=== PATIENT | male | born 1970 | race Caucasian/White ===

== ENCOUNTER 2018-12-08 17:35 | Emergency (ER) | payer OTHER ==
[~2018-12-08] VITALS: Ht 182.9 cm; Wt 129.3 kg
--- OUTSIDE RECORDS SUMMARY | 2018-12-08 17:41 | XMS REPORT | Continuity of Care Document ---
Author Organization Unknown Address Unknown Allergies Active Description Code Type Severity Reaction Onset Reported/Identified Relationship to Patient Clinical Status Yes NO NAME AVAILABLE 26736 DRUG N/ A N/A Yes MDX - Codeine X386 Drug Allergy Mild HIVES 09/23/2011 Yes MDX - PCN (penicillin) X20 Drug Allergy Unknown N/A 09/23/2011 Medications There is no data. Problems There is no data. Procedures There is no data. Results Test Result Range BASIC METABOLIC PANEL - 02/12/15 06:40 POTASSIUM 3.9 mmol/L 3.5-5.1 CALCIUM 8.6 mg/dL 8.6-10.6 GLUCOSE 96 mg/dL 70-115 BUN 14 mg/dL 8-22 CREATININE 1.0 mg/dL 0.7-1.3 SODIUM 138 mmol/L 136-145 CHLORIDE 103 mmol/L 98-110 CO2 26 mmol/L 22-29 GFR ESTIMATED NOT AFR/AM >60 GFR ESTIMATED IF AFR/AM >60 ANION GAP 9 5-15 CBC WITH DIFF - 02/12/15 06:40 WBC 20.0 10*3/uL 4.3-10.8 RBC 2.96 10*6/uL 4.70-6.10 HGB 8.2 g/dL 14.0-18.0 HCT 25.4 % 42-52 MCV 86 fL 81-99 MCH 28 pg 26-34 MCHC 33 g/dL 31-37 PLATELET COUNT 454 10*3/uL 150-400 RDWCV 16.1 % 11.5-14.5 DIFF TYPE MANUAL DIFF SEG NEUTROPHILS 79 % 36-66 BAND NEUTROPHILS 5 % 5-11 LYMPHOCYTES 9 % 24-44 EOSINOPHILS 2 % 0-10 METAMYELOCYTES 2 % NEUTROPHILS, ABSOLUTE 16.8 10*3/uL 1.55-7.13 LYMPHOCYTES, ABSOLUTE 2.0 10*3/uL 1.0-4.8 EOSINOPHILS, ABSOLUTE 0.4 10*3/uL 0.0-0.65 METAMYELOCYTES, ABSOLUTE 0.4 10*3/uL RBC MORPHOLOGY SEE NOTES VARIANT LYMPHS PERCENT 1 % NRBC 2 PLATELET ESTIMATE SEE NOTES MONOCYTES 2 % 1-10 MONOCYTES, ABSOLUTE 0.4 10*3/uL 0.4-1.08 PLATELET MORPHOLOGY LARGE PLATELETS GLUCOSE BODY FLUID - 02/12/15 10:00 SOURCE GROIN FLUID GLUCOSE 90 mg/dL TOTAL PROTEIN FLUID - 02/12/15 10:00 SPECIMEN SOURCE GROIN FLUID TOTAL PROTEIN 1.5 g/dL CELL COUNT AND DIFFERENTIAL BODY FLUID - 02/12/15 10:00 BODY FLUID SOURCE GROIN BODY FLUID VOLUME 29.0 mL SUPERNATANT COLOR ORANGE CLARITY CLOUDY NUCLEATED CELL COUNT 107 mm3 RBC'S, FLUID 89212 mm3 DIFFERENTIAL BODY FLUID - 02/12/15 10:00 POLYS 89 % LYMPHS 11 % MONONUCLEAR 0 % EOSINOPHILS 0 % OTHER CELLS 0 % BODY FLUID CULTURE, AEROBIC ONLY, W GRAM STAIN - 02/12/15 10:00 SOURCE SOURCE: GROIN REQUISITION NOTE REQUISITION NOTE: GROIN GRAM STAIN GRAM STAIN EVALUATION: CYTOSPIN PREPARED GRAM STAIN CULTURE RESULTS CULTURE RESULTS: NO GROWTH AT 72 HOURS REPORT STATUS REPORT STATUS: 02/15/2015 FINAL ANAEROBIC CULTURE - 02/12/15 10:00 SOURCE SOURCE: GROIN REQUISITION NOTE REQUISITION NOTE: GROIN SEROMA S/P HEART CATH CULTURE RESULTS CULTURE RESULTS: NO GROWTH ANAEROBICALLY REPORT STATUS REPORT STATUS: 02/16/2015 FINAL CBC WITH DIFF - 02/14/15 02:44 WBC 19.6 10*3/uL 4.3-10.8 RBC 3.18 10*6/uL 4.70-6.10 HGB 8.5 g/dL 14.0-18.0 HCT 27.0 % 42-52 MCV 85 fL 81-99 MCH 27 pg 26-34 MCHC 32 g/dL 31-37 PLATELET COUNT 506 10*3/uL 150-400 RDWCV 16.1 % 11.5-14.5 DIFF TYPE AUTOMATED DIFF NEUTROPHIL % 81 % 36-66 LYMPHOCYTE % 11 % 24-44 MONOCYTE % 7 % 1-10 EOSINOPHIL % 1 % 0-6 BASOPHIL % 1 % 0-2 ABS. NEUTROPHILS 15.5 10*3/uL 1.55-7.13 ABS. LYMPHOCYTES 2.0 10*3/uL 1.0-4.8 ABS. MONOCYTES 1.3 10*3/uL 0.4-1.08 ABS. EOSINOPHILS 0.2 10*3/uL 0.0-0.65 ABS. BASOPHILS 0.1 10*3/uL 0.0-0.11 ABSOLUTE NUCLEATED RBC 0.40 10*3/uL PROCALCITONIN - 02/14/15 02:44 PROCALCITONIN 0.16 ng/mL BLOOD CULTURE - 02/14/15 02:44 SOURCE SOURCE: BLOOD REQUISITION NOTE REQUISITION NOTE: PERIPHERAL BLOOD CULTURE RESULTS CULTURE RESULTS: NO GROWTH 5 DAYS REPORT STATUS REPORT STATUS: 02/19/2015 FINAL BASIC METABOLIC PANEL POCT - 02/14/15 02:50 POC COMMENT SEE NOTES SODIUM POCT 134 mmol/L 138-146 POTASSIUM POCT 3.4 mmol/L 3.5-4.9 CHLORIDE POCT 95 mmol/L 98-109 MEASURED TOTAL CO2 POCT 29 meq/L 24-29 BUN POCT 16 mg/dL 8-26 CREATININE POCT 1.3 mg/dL 0.6-1.3 GLUCOSE POCT 106 mg/dL 70-105 IONIZED CALCIUM POCT 1.07 mmol/L 1.12-1.32 BLOOD CULTURE - 02/14/15 03:00 SOURCE SOURCE: BLOOD REQUISITION NOTE REQUISITION NOTE: PEDS ONLY CULTURE RESULTS CULTURE RESULTS: NO GROWTH 5 DAYS REPORT STATUS REPORT STATUS: 02/19/2015 FINAL Encounters ACCT No. Visit Date/Time Discharge Status Pt. Type Provider Facility Loc./Unit Complaint [id number] 07/09/2018 15:02:36 07/09/2018 23:59:59 CLS Outpatient [facility] [employer] [id number] 10/22/2017 09:30:00 10/22/2017 23:59:59 CLS Outpatient Vincent Benitez [facility]YSICAL [id number] 02/17/2015 21:29:06 ACT Document Registration [id number] 02/17/2015 21:29:00 02/18/2015 02:31:00 DIS Emergency JUDITH PARDO [facility] FED [id number] 02/14/2015 01:20:00 02/14/2015 04:00:00 DIS Emergency MANA DE ANDA [facility] FED [id number] 02/12/2015 05:57:56 02/12/2015 11:40:00 DIS Emergency RAY [facility] Heather HATCH
[2018-12-08] MEDS ORDERED: LIDOCAINE 1% INJ 20 ML 20 ML VIAL ONE (17:56)
[2018-12-08] MEDS ORDERED: OMEP10CA4 PO (18:15)
[2018-12-08] MEDS ORDERED: HCTZ (18:16)
[2018-12-08] MEDS ORDERED: ASPI-999 PO (18:16)
[2018-12-08] MEDS ORDERED: METO-387 PO (18:17)
[2018-12-08] MEDS ORDERED: GABA-488 PO (18:17)
--- NOTE | 2018-12-08 18:30 | ED Head Injury ---
General Chief Complaint: Laceration Stated Complaint: LT EYE LAC Nursing Triage Note: HIS SEMI TRUCK DOOR CAME DOWN AND HIT HIM IN THE LEFT EYEBROW AREA. THE AREA IS OPEN, BLEDDING CONTROLLED AND APPROXIMATELY 3 CM LONG WITH ABOUT A 0.5 CM CROSS LACERATION TO THE CENTER. Source: patient Exam Limitations: no limitations History of Present Illness Date Seen by Provider: December 08, 2018 Time Seen by Provider: 18:00 Initial Comments Patient presents ER by private conveyance with chief complaint that about an hour prior to arrival he had a shovel propping up tailgate of a tractor-trailer that he was cleaning out. She'll fell out and the tailgate struck him in his left forehead above the eyebrow. He has a T-shaped laceration that is pretty much stopped bleeding by the time he arrived the ER. He is a small minor abrasion on his left chest. He denies loss of consciousness nausea. He is not on blood thinners but he does take aspirin daily. Pain is mildly does not want anything for this time. History of AAA and coronary disease. Allergies and Home Medications Allergies Coded Allergies: codeine (Verified Allergy, Intermediate, LETHARGIC, 12/08/18) Uncoded Allergies: PENICILLIN (Allergy, Mild, HIVES, 12/08/18) Home Medications Metoprolol Succinate 25 Mg Tab.er.24h, 25 MG PO DAILY, (Reported) Ondansetron 4 Mg Tab.rapdis, 4 MG PO Q6H PRN for NAUSEA/VOMITING Prescribed by: BRUAN CONNOLLY on 12/08/18 4727 Patient Home Medication List Home Medication List Reviewed: Yes Review of Systems Review of Systems Constitutional: No chills, No diaphoresis Eyes: Denies Blindness, Denies Blurred Vision Ears, Nose, Mouth, Throat: denies ear pain, denies ear discharge Respiratory: No cough Cardiovascular: No chest pain, No palpitations Gastrointestinal: No abdominal pain, No constipation, No diarrhea Past Ixzqabm-Cfnxoq-Sfrlvb Hx Patient Social History Alcohol Use: Denies Use Recreational Drug Use: No Smoking Status: Current Everyday Smoker Type Used: Cigarettes 2nd Hand Smoke Exposure: Yes Recent Foreign Travel: No Contact w/Someone Who Travel: No Recent Infectious Disease Expo: No Recent Hopitalizations: No Physical Abuse: No Sexual Abuse: No Mistreated: No Fear: No Seasonal Allergies Seasonal Allergies: No Past Medical History Surgeries: Yes Appendectomy, CABG, Orthopedic Respiratory: No Cardiac: Yes Heart Attack, Hypertension Neurological: No Genitourinary: No Gastrointestinal: No Musculoskeletal: Yes Arthritis Endocrine: No HEENT: No Cancer: No Psychosocial: No Integumentary: No Blood Disorders: No Physical Exam Vital Signs Vital Signs - First Documented 12/08/18 17:40 Temp 98.5 Pulse 90 Resp 18 B/P (MAP) 141/87 (105) Pulse Ox 96 O2 Delivery Room Air Capillary Refill : Less Than 3 Seconds Height, Weight, BMI Height: 6'0" Weight: 285lbs. oz. 129.336248sw; BMI Method:Stated General Appearance: WD/WN, no apparent distress HEENT: PERRL/EOMI, normal ENT inspection, TMs normal, pharynx normal, other ( negative for hemotympanum, martin sign or raccoon eyes. There is a T-shaped laceration approximately 4 cm wide by 2 cm vertical. It's over the left eye with the horizontal piece through the eyebrow. No overt foreign body.) Neck: non-tender, full range of motion Cardiovascular: normal peripheral pulses, regular rate, rhythm Respiratory: lungs clear, normal breath sounds, no respiratory distress, no accessory muscle use Psychiatric: alert, oriented x 3 Crainal Nerves: normal hearing, normal speech, PERRL Motor/Sensory: no motor deficit, no sensory deficit [place] Coma Score Best Eye Response: (4) Open Spontaneously Best Verbal Response: (5) Oriented Best Motor Response: (6) Obeys Commands Shirley Total: 15 Procedures/Interventions Wound Location: Face Other Wound Location Left eyebrow Wound Length (cm): 6 Wound's Depth, Shape: into muscle Wound Explored: no foreign body removed Irrigated w/ Saline (ccs): 150 Betadine Prep?: Yes (chlorhexidine soap and sterile saline) Anesthesia: 1% Lidocaine Volume Anesthetic (ccs): 5 Wound Debrided: minimal Suture: Ethlion Suture Size: 4-0 Number of Sutures: 7 Layer Closure?: 1 Progress Patient's wound was cleaned thoroughly using chlorhexidine soap and sterile saline. We then infiltrated the skin edges with approximate 5 cc 1% lidocaine without epinephrine until the patient had good anesthesia. We then thoroughly cleaned and explored the wound removing any blood clot and a small amount of foreign matter consistent with fine sand. No large particular was found. The wound edges were then reapproximated and 2 simple interrupted sutures were placed in each branch of the T-shaped and then a central corner stitch was placed for a total of 7 stitches. Wound was cleaned had good cosmesis and hemostatic. Patient tolerated the procedure very well. Progress/Results/Core Measures Results/Orders My Orders Orders - BRUNA CONNOLLY Ct Head/Cervical Spine Wo (12/08/18 18:29) Medications Given in ED Current Medications Medications Dose Ordered Sig/Raya Route Start Time Stop Time Status Last Admin Dose Admin Lidocaine HCl 20 ml STK-MED ONCE .ROUTE 12/08/18 17:56 12/08/18 18:01 DC 12/08/18 18:18 20 ML Vital Signs/I&O 12/08/18 12/08/18 17:40 19:00 Temp 98.5 98.6 Pulse 90 82 Resp 18 18 B/P (MAP) 141/87 (105) 132/68 (89) Pulse Ox 96 99 O2 Delivery Room Air Room Air Blood Pressure Mean: 105 Progress Progress Note : Time: 18:[address] of the head and C-spine. He does use aspirin. Wound is cleaned thoroughly and put back together. Patient says he's had a tetanus shot in the last couple years. Diagnostic Imaging Diagonstic Imaging: CT (noncontrast) Plain Films/CT/US/NM/MRI: c-spine, head Comments Limbs and globes appear okay no nasal bone fracture facial fracture or retro- orbitally hematoma. Soft tissue swelling over the left eye noted. No evidence of significant intracranial hemorrhage, mass effect, Shift or tumor. No acute calvarial fracture. Chronic appearing punctate calcifications. No acute evidence of osseous fracture of the C-spine, misalignment or subluxation. Soft tissues unremarkable. [facility] [place], [place] NAME: [facility] REC#: [id number] PT STATUS: DEP ER : 1970 PHYSICIAN: BRUNA CONNOLLY MD ADMIT DATE: 12/08/18/ER FS Draft Date of Exam:12/08/18 CT HEAD/CERVICAL SPINE WO PROCEDURE: CT head and CT cervical spine without contrast. TECHNIQUE: Multiple contiguous axial images were obtained through the brain and cervical spine without the use of intravenous contrast. Sagittal and coronal reformations through the cervical spine were then performed. Auto Exposure Controls were utilized during the CT exam to meet ALARA standards for radiation dose reduction. INDICATION: Head injury with head and neck pain CT HEAD: CT images of the head were obtained. FINDINGS: Ventricles and sulci are within normal limits for size. There is no intracranial hemorrhage identified. There is no abnormal mass effect or shift of midline structures. IMPRESSION: Unremarkable CT of the head. CT cervical spine: There is reversal of the cervical lordosis. Vertebral body heights are maintained. There is no evidence of an acute fracture or malalignment. There is mild splaying of the posterior elements at C3-4. This is not associated with hemorrhage and there is moderate C3-4 degenerative disc disease and endplate spurring. Endplate spurring is also seen at C4-5 and C5-6 as well as C6-7. IMPRESSION: Reversal of the cervical lordosis which may be secondary to muscle spasm or positioning. If there is focal tenderness posteriorly at C3-4, consideration could be given to MRI to further assess for ligamentous integrity. Otherwise, spondylosis is present without other evidence of acute abnormality. Dictated on workstation # [id number] Dict: 12/08/18 1859 Trans: 12/08/18 1905 [facility] [id number] Interpreted by: HARMONY HARRINGTON MD Electronically signed by: Departure Impression Primary Impression: Concussion Qualified Codes: S06.0X0A - Concussion without loss of consciousness, initial encounter Additional Impressions: Laceration of head Qualified Codes: S01.81XA - Laceration without foreign body of other part of head, initial encounter Abrasion or friction burn of chest wall without infection Disposition: 01 HOME, SELF-CARE Condition: Improved Departure-Patient Inst. Decision time for Depature: 18:57 Referrals: NO,LOCAL PHYSICIAN (PCP) Primary Care Physician Patient Instructions: Laceration Repair With Stitches (DC) Add. Discharge Instructions: Return to the ER, your primary care physician's office, urgent care etc. to have the sutures removed and a wound recheck in 10-14 days. There is no extra charge if you return to this ER for the sutures were placed. If you have any symptoms of a concussion such as headache, nausea, fatigue, being off balance then you need to put her brain to rest. That means get sleep no cell phones tablets Internet TV. Use Tylenol 1000 mg every 8 hours and/or ibuprofen 800 mg every 8 hours as necessary for pain. If you have nausea from a concussion and you should parts picker the prescription for Zofran take one tablet every 6 hours as necessary. Keep the wound clean with regular soap and water and you may apply a thin layer of Vaseline or triple antibiotic ointment as well as a dressing to keep the dirt out. No submersion underwater until the sutures are out. Showering or spit bath is okay. If the wound begins to enlarge get red hot swollen or have discharge or you develop a fever above 100.3 then the wound may need to be reexamined sooner and antibiotics initiated. Typically scalp wounds do not require antibiotics. All discharge instructions reviewed with patient and/or family. Voiced understanding. Scripts Ondansetron (Ondansetron Odt) 4 Mg Tab.rapdis 4 MG PO Q6H PRN for NAUSEA/VOMITING, #8 TAB 0 Refills Prov: BRUNA CONNOLLY 12/08/18 Work/School Note: Work Release Form Date Seen in the Emergency Department: December 08, 2018 Return to Work: December 09, 2018 Restrictions: No Restrictions BRUNA CONNOLLY December 08, 2018 18:30
[2018-12-08] MEDS ORDERED: ONDA4TAB11 PO (18:58)
[2018-12-08 19:00] VITALS: BP 132/68
--- NOTE | 2018-12-08 19:05 | Diagnostic Imaging Report ---
PROCEDURE: CT head and CT cervical spine without contrast. TECHNIQUE: Multiple contiguous axial images were obtained through the brain and cervical spine without the use of intravenous contrast. Sagittal and coronal reformations through the cervical spine were then performed. Auto Exposure Controls were utilized during the CT exam to meet ALARA standards for radiation dose reduction. INDICATION: Head injury with head and neck pain CT HEAD: CT images of the head were obtained. FINDINGS: Ventricles and sulci are within normal limits for size. There is no intracranial hemorrhage identified. There is no abnormal mass effect or shift of midline structures. IMPRESSION: Unremarkable CT of the head. CT cervical spine: There is reversal of the cervical lordosis. Vertebral body heights are maintained. There is no evidence of an acute fracture or malalignment. There is mild splaying of the posterior elements at C3-4. This is not associated with hemorrhage and there is moderate C3-4 degenerative disc disease and endplate spurring. Endplate spurring is also seen at C4-5 and C5-6 as well as C6-7. IMPRESSION: Reversal of the cervical lordosis which may be secondary to muscle spasm or positioning. If there is focal tenderness posteriorly at C3-4, consideration could be given to MRI to further assess for ligamentous integrity. Otherwise, spondylosis is present without other evidence of acute abnormality. Dictated by: Dictated on workstation # [id number]
== END 2018-12-08 19:01 | disposition home or self-care (01) ==
LOC: ER FS 17:37
DX: S06.0X0A Concussion without loss of consciousness, initial encounter (principal); S01.112A Laceration without foreign body of left eyelid and periocular area, initial encounter; T21.01XA Burn of unspecified degree of chest wall, initial encounter; T31.0 Burns involving less than 10% of body surface; I25.2 Old myocardial infarction; I10 Essential (primary) hypertension; R40.2142 Coma scale, eyes open, spontaneous, at arrival to emergency department; R40.2252 Coma scale, best verbal response, oriented, at arrival to emergency department; R40.2362 Coma scale, best motor response, obeys commands, at arrival to emergency department; F17.210 Nicotine dependence, cigarettes, uncomplicated; Z90.49 Acquired absence of other specified parts of digestive tract; Z95.1 Presence of aortocoronary bypass graft; Z88.5 Allergy status to narcotic agent; Z88.0 Allergy status to penicillin; W17.89XA Other fall from one level to another, initial encounter
CPT/HCPCS: 70450; 72125

== ENCOUNTER 2018-12-22 16:48 | Emergency (ER) | payer OTHER ==
[~2018-12-22] VITALS: Ht 182.9 cm; Wt 129.3 kg
[~2018-12-22 16:48] MED LIST: ASPI-999 PO; GABA-488 PO; HCTZ; METO-387 PO; OMEP10CA4 PO; ONDA4TAB11 PO
--- OUTSIDE RECORDS SUMMARY | 2018-12-22 17:00 | XMS REPORT | Continuity of Care Document ---
Author Organization Unknown Address Unknown Allergies Active Description Code Type Severity Reaction Onset Reported/Identified Relationship to Patient Clinical Status Yes NO NAME AVAILABLE 66040 DRUG N/A N/A Medications There is no data. Problems There [...] NUCLEATED CELL COUNT 107 mm3 RBC'S, FLUID 68842 mm3 DIFFERENTIAL BODY FLUID - 02/12/15 10:00 [...] DAYS REPORT STATUS REPORT STATUS: 02/19/2015 FINAL - 12/09/18 17:24 [employer]ental Service Attendant Ulisses Arroyo Donor ID By Photo ID Location [facility] Nerissa Reason For Test Post Accident Temperature In Range YES Deg F 90.00-100.00 Urine Amphetamines NEGATIVE Urine Barbiturates NEGATIVE Urine Benzodiazepines NEGATIVE Urine Cocaine NEGATIVE Urine MDMA NEGATIVE Urine Methadone NEGATIVE Urine Methamphetamines NEGATIVE Urine Opiates NEGATIVE Urine Oxycodone NEGATIVE Urine PCP NEGATIVE Urine THC Metabolite NEGATIVE Encounters ACCT No. Visit Date/Time Discharge Status Pt. Type Provider Facility Loc./Unit Complaint [id number] 12/09/2018 17:15:00 12/09/2018 23:59:00 DIS Outpatient UNLISTED, UNLISTED [id number] 07/09/2018 15:02:36 07/09/2018 23:59:59 [facility] Outpatient [facility] [id number] 02/17/2015 21:29:00 02/18/2015 02:31:00 DIS Emergency JUDITH PARDO [facility] FED [id number] 02/14/2015 01:20:00 02/14/2015 04:00:00 DIS Emergency IMNAHAMANA [facility] FED [id number] 02/12/2015 05:57:56 02/12/2015 11:40:00 DIS Emergency DANNIE BELL [facility] MAMIE
[2018-12-22 17:20] VITALS: BP 134/91
--- NOTE | 2018-12-22 17:37 | ED Suture Removal/Wound Check ---
Suture/Wound Re-check Suture Removal/Wound Recheck : Suture Removal/Wound Recheck: Sutures removed by RN General Appearance: WD/WN, no apparent distress Skin Exam: normal color Physical Exam Vital Signs Capillary Refill : General Appearance: WD/WN, no apparent distress HEENT: other (forehead lacerationn is C&D and well healed.) Respiratory: no respiratory distress Neurologic/Psychiatric: alert, normal mood/affect Skin: warm/dry Skin Problem Location: face Skin Problem Character: other (healing laceration) Departure Impression Primary Impression: Visit for suture removal Disposition: 01 HOME, SELF-CARE Condition: Improved Departure-Patient Inst. Referrals: NO,LOCAL PHYSICIAN (PCP) Primary Care Physician Patient Instructions: SUTURE REMOVAL-UNCOMPLICATED LYNDON GODINEZ DO December 22, 2018 17:37
== END 2018-12-22 17:20 | disposition home or self-care (01) ==
LOC: EDUNIT# 16:48 → ER FS 16:51
DX: S01.81XD Laceration without foreign body of other part of head, subsequent encounter (principal); X58.XXXD Exposure to other specified factors, subsequent encounter